=== PATIENT | female | born 1945 | race Caucasian/White ===

== ENCOUNTER 2022-05-02 10:01 | Emergency (ER) | payer MEDICARE ==
[~2022-05-02] VITALS: Ht 157.5 cm; Wt 64.5 kg
[2022-05-02] MEDS ORDERED: ATOR1TAB19 PO (10:22)
[2022-05-02] MEDS ORDERED: LOSA50TA28 PO (10:22)
[2022-05-02 11:17] LABS: RSV AMPLIFICATION NEGATIVE (NEGATIVE)
[2022-05-02] MEDS ORDERED: NS 1,000 ML IV ONE (11:40)
[2022-05-02 12:04] LABS: HEMATOCRIT 40.2 % (36.0-47.0); HEMOGLOBIN 13.1 g/dl (12.0-15.5); MEAN CORPUSCULAR HEMOGLOBIN 30.5 pg (27.0-33.0); MEAN CORPUSCULAR HGB CONC 32.6 g/dl (32.0-36.5); MEAN CORPUSCULAR VOLUME 93.7 fl (80.0-96.0); PLATELET COUNT, AUTOMATED 221 10^3/uL (150-450); RED BLOOD COUNT 4.29 10^6/uL (4.00-5.40); WHITE BLOOD COUNT 18.8 10^3/uL (4.0-10.0)
[2022-05-02 12:27] LABS: LYMPHOCYTES 3 % (16-44); MONOCYTES 6 % (0-5); NEUTROPHILS 90 % (28-66); PLATELET ESTIMATE NORMAL (NORMAL)
[2022-05-02 12:33] LABS: BILIRUBIN,DIRECT 0.7 MG/DL (0.0-0.2); BILIRUBIN,TOTAL 1.2 MG/DL (0.2-1.0); CALCIUM LEVEL 9.3 MG/DL (8.8-10.2); CREATININE FOR GFR 0.98 MG/DL (0.55-1.30); GLOMERULAR FILTRATION RATE 59.1 (>39); POTASSIUM SERUM 4.3 MEQ/L (3.5-5.1); TOTAL PROTEIN 6.5 GM/DL (6.4-8.2)
[2022-05-02] MEDS ORDERED: MACR100C43 PO (14:22)
[2022-05-02] MEDS ORDERED: ONDA4TAB6 PO (14:24)
[2022-05-02 14:30] VITALS: BP 114/55
[2022-05-03] MEDS ORDERED: SUPECAP7 PO (17:05)
[2022-05-03] MEDS ORDERED: NITR100C2 PO (17:05)
[2022-05-03] MEDS ORDERED: VITMTA PO (17:05)
[2022-05-03] MEDS ORDERED: ESSE250T PO (17:05)
[2022-05-03] MEDS ORDERED: GLUC1TAB58 PO (17:05)
[2022-05-03] MEDS ORDERED: ONDA4TAB6 PO (17:05)
[2022-05-03] MEDS ORDERED: SOY40TAB PO (17:05)
[2022-05-03] MEDS ORDERED: ASPI81TA26 PO (17:05)
== END 2022-05-02 14:35 | disposition home or self-care (01) ==
LOC: M ED 10:01
DX: N39.0 Urinary tract infection, site not specified (principal); I10 Essential (primary) hypertension; E78.5 Hyperlipidemia, unspecified; Z86.73 Personal history of transient ischemic attack (TIA), and cerebral infarction without residual deficits; Z88.2 Allergy status to sulfonamides; Z79.899 Other long term (current) drug therapy

== ENCOUNTER 2022-05-03 11:06 | Inpatient (IN) | payer MEDICARE ==
[~2022-05-03] VITALS: Ht 157.5 cm; Wt 65.0 kg
[~2022-05-03 11:06] MED LIST: ATOR1TAB19 PO; LOSA50TA28 PO; MACR100C43 PO; ONDA4TAB6 PO
[2022-05-03] MEDS ORDERED: cefTRIAXone SOD 2 GM in D5W MINI-BAG PLUS 50 ML IV ONE (12:15)
[2022-05-03 12:16] LABS: HEMATOCRIT 39.4 % (36.0-47.0); HEMOGLOBIN 12.9 g/dl (12.0-15.5); MEAN CORPUSCULAR HEMOGLOBIN 30.6 pg (27.0-33.0); MEAN CORPUSCULAR HGB CONC 32.7 g/dl (32.0-36.5); MEAN CORPUSCULAR VOLUME 93.4 fl (80.0-96.0); PLATELET COUNT, AUTOMATED 239 10^3/uL (150-450); RED BLOOD COUNT 4.22 10^6/uL (4.00-5.40); WHITE BLOOD COUNT 18.3 10^3/uL (4.0-10.0)
[2022-05-03] MEDS ORDERED: NS 1,000 ML IV ONE (12:20)
[2022-05-03] MEDS ORDERED: diazePAM 10MG/2ML SYRINGE (J3360 PER 5MG) IV ONE (12:20)
[2022-05-03 12:48] LABS: ERYTHROCYTE SEDIMENTATION RATE 58 mm/hr (0-30)
[2022-05-03 12:54] LABS: ATYPICAL LYMPH 1 % (0-5); BASOPHILS 1 % (0-1); LYMPHOCYTES 8 % (16-44); MONOCYTES 4 % (0-5); NEUTROPHILS 86 % (28-66); PLATELET ESTIMATE NORMAL (NORMAL)
[2022-05-03 14:19] LABS: RSV AMPLIFICATION NEGATIVE (NEGATIVE)
[2022-05-03 15:25] LABS: ALBUMIN 2.4 GM/DL (3.2-5.2); ALT/SGPT 47 U/L (12-78); BILIRUBIN,DIRECT 0.5 MG/DL (0.0-0.2); BILIRUBIN,TOTAL 0.7 MG/DL (0.2-1.0); BLOOD UREA NITROGEN 12 MG/DL (7-18); CALCIUM LEVEL 8.7 MG/DL (8.8-10.2); CARBON DIOXIDE LEVEL 23 MEQ/L (21-32); CHLORIDE LEVEL 110 MEQ/L (98-107); CREATININE FOR GFR 0.68 MG/DL (0.55-1.30); GLOMERULAR FILTRATION RATE > 60.0 (>39); GLUCOSE, FASTING 129 MG/DL (70-100); SODIUM LEVEL 141 MEQ/L (136-145); TOTAL PROTEIN 5.6 GM/DL (6.4-8.2)
[2022-05-03] MEDS ORDERED: ISOVUE-370 76% 100ML VIAL As Ordered ONE (15:32)
[2022-05-03] MEDS ORDERED: diazePAM 2 MG TAB PO ONE (16:00)
[2022-05-03] MEDS ORDERED: ACETAMINOPHEN 325 MG TAB PO ONE (16:00)
[2022-05-03] MEDS ORDERED: ASPI81TA26 PO (17:05)
[2022-05-03] MEDS ORDERED: VITMTA PO (17:05)
[2022-05-03] MEDS ORDERED: ESSE250T PO (17:05)
[2022-05-03] MEDS ORDERED: ONDA4TAB6 PO (17:05)
[2022-05-03] MEDS ORDERED: SUPECAP7 PO (17:05)
[2022-05-03] MEDS ORDERED: SOY40TAB PO (17:05)
[2022-05-03] MEDS ORDERED: NITR100C2 PO (17:05)
[2022-05-03] MEDS ORDERED: GLUC1TAB58 PO (17:05)
[2022-05-03] MEDS ORDERED: HOME MED LIST COMPLETE! XX SCH (17:10)
[2022-05-03] MEDS ORDERED: ONDANSETRON 4MG ORAL DISINTEGRATING TAB PO PRN (17:20)
[2022-05-03] MEDS ORDERED: KETOROLAC 30 MG/ML 1ML VIAL IV ONE (17:50)
[2022-05-03] MEDS ORDERED: NS 1,000 ML IV SCH (18:10)
[2022-05-03 18:27] LABS: INR 1.02; PROTHROMBIN TIME 13.8 SECONDS (12.7-14.5)
[2022-05-03 18:28] LABS: PARTIAL THROMBOPLASTIN TIME 32.8 SECONDS (25.9-37.0)
[2022-05-03 20:33] VITALS: BP 108/66
[2022-05-03] MEDS: ASPIRIN 81MG ENTERIC TABLET PO SCH (20:57)
[2022-05-03] MEDS: ENOXAPARIN 40MG/0.4ML SYRINGE (J1650 PER 10MG) SC SCH (20:57)
[2022-05-03] MEDS: ATORVASTATIN 10 MG TAB PO SCH (20:57)
[2022-05-03] MEDS: LOSARTAN 50MG TABLET PO SCH (20:57)
[2022-05-03] MEDS: RAMELTEON 8 MG TAB (ROZEREM) PO SCH (21:00)
[2022-05-04] MEDS: ACETAMINOPHEN TAB 650MG DOSE (2X325MG) PO PRN ×4 (01:26→20:06)
[2022-05-04 05:21] VITALS: BP 110/66
[2022-05-04 06:09] LABS: HEMATOCRIT 32.9 % (36.0-47.0); MEAN CORPUSCULAR HEMOGLOBIN 30.4 pg (27.0-33.0); MEAN CORPUSCULAR HGB CONC 32.5 g/dl (32.0-36.5); MEAN CORPUSCULAR VOLUME 93.5 fl (80.0-96.0); PLATELET COUNT, AUTOMATED 225 10^3/uL (150-450); RED BLOOD COUNT 3.52 10^6/uL (4.00-5.40)
[2022-05-04 06:20] LABS: HEMOGLOBIN 10.7 g/dl (12.0-15.5)
[2022-05-04 06:34] LABS: ALBUMIN 2.2 GM/DL (3.2-5.2); ALT/SGPT 44 U/L (12-78); BILIRUBIN,TOTAL 0.4 MG/DL (0.2-1.0); BLOOD UREA NITROGEN 15 MG/DL (7-18); CALCIUM LEVEL 8.4 MG/DL (8.8-10.2); CARBON DIOXIDE LEVEL 24 MEQ/L (21-32); CHLORIDE LEVEL 111 MEQ/L (98-107); CREATININE FOR GFR 0.84 MG/DL (0.55-1.30); GLOMERULAR FILTRATION RATE > 60.0 (>39); GLUCOSE, FASTING 138 MG/DL (70-100); POTASSIUM SERUM 3.7 MEQ/L (3.5-5.1); SODIUM LEVEL 141 MEQ/L (136-145); TOTAL PROTEIN 5.4 GM/DL (6.4-8.2)
[2022-05-04] MEDS: MULTIVITAMINS/MINERALS THERAP 1 TAB PO SCH (08:07)
[2022-05-04] MEDS ORDERED: cefTRIAXone SOD 1 GM in D5W MINI-BAG PLUS 50 ML IV SCH (13:00)
[2022-05-04 14:00] VITALS: BP 129/79
[2022-05-04] MEDS ORDERED: KETOROLAC 30 MG/ML 1ML VIAL IV ONE (15:00)
[2022-05-04] MEDS: DOCUSATE SODIUM 100MG CAPSULE PO SCH (20:04)
[2022-05-04 20:05] VITALS: BP 130/78
[2022-05-04] MEDS: LOSARTAN 50MG TABLET PO SCH (20:05)
[2022-05-04] MEDS: RAMELTEON 8 MG TAB (ROZEREM) PO SCH (20:05)
[2022-05-04] MEDS: ATORVASTATIN 10 MG TAB PO SCH (20:05)
[2022-05-04] MEDS: ASPIRIN 81MG ENTERIC TABLET PO SCH (20:05)
[2022-05-04] MEDS: ENOXAPARIN 40MG/0.4ML SYRINGE (J1650 PER 10MG) SC SCH (20:06)
[2022-05-05] MEDS: ACETAMINOPHEN TAB 650MG DOSE (2X325MG) PO PRN ×2 (02:07→07:59)
[2022-05-05 06:00] VITALS: BP 113/69
[2022-05-05 06:41] LABS: HEMATOCRIT 33.9 % (36.0-47.0); HEMOGLOBIN 10.9 g/dl (12.0-15.5); MEAN CORPUSCULAR HGB CONC 32.2 g/dl (32.0-36.5); MEAN CORPUSCULAR VOLUME 93.4 fl (80.0-96.0); PLATELET COUNT, AUTOMATED 263 10^3/uL (150-450); RED BLOOD COUNT 3.63 10^6/uL (4.00-5.40); WHITE BLOOD COUNT 10.6 10^3/uL (4.0-10.0)
[2022-05-05 07:00] LABS: ALBUMIN 2.1 GM/DL (3.2-5.2); ALT/SGPT 45 U/L (12-78); BILIRUBIN,TOTAL 0.4 MG/DL (0.2-1.0); BLOOD UREA NITROGEN 11 MG/DL (7-18); CALCIUM LEVEL 8.5 MG/DL (8.8-10.2); CARBON DIOXIDE LEVEL 25 MEQ/L (21-32); CHLORIDE LEVEL 112 MEQ/L (98-107); CREATININE FOR GFR 0.67 MG/DL (0.55-1.30); GLOMERULAR FILTRATION RATE > 60.0 (>39); GLUCOSE, FASTING 122 MG/DL (70-100); POTASSIUM SERUM 4.1 MEQ/L (3.5-5.1); SODIUM LEVEL 144 MEQ/L (136-145); TOTAL PROTEIN 5.4 GM/DL (6.4-8.2)
[2022-05-05] MEDS: DOCUSATE SODIUM 100MG CAPSULE PO SCH (07:56)
[2022-05-05] MEDS: MULTIVITAMINS/MINERALS THERAP 1 TAB PO SCH (07:56)
[2022-05-05] MEDS ORDERED: LEVO750T13 PO (10:59)
[2022-05-05] MEDS ORDERED: LevoFLOXacin 250 MG TABLET PO ONE (13:00)
== END 2022-05-05 13:20 | disposition home or self-care (01) | DRG 872 ==
LOC: M ED 11:06 → M ED INP 17:18 → M MSPAV 20:20
PROVIDERS: ADMIT Internal Medicine; ATTEND Internal Medicine
DX: A41.51 Sepsis due to Escherichia coli [E. coli] (principal); N10 Acute pyelonephritis; I10 Essential (primary) hypertension; E78.5 Hyperlipidemia, unspecified; Z96.653 Presence of artificial knee joint, bilateral; Z90.79 Acquired absence of other genital organ(s); Z90.49 Acquired absence of other specified parts of digestive tract; E04.1 Nontoxic single thyroid nodule; Z20.822 Contact with and (suspected) exposure to COVID-19; Z79.82 Long term (current) use of aspirin; Z79.899 Other long term (current) drug therapy; Z88.2 Allergy status to sulfonamides; B96.20 Unspecified Escherichia coli [E. coli] as the cause of diseases classified elsewhere